=== PATIENT | female | born 1940 | race Caucasian/White ===

== ENCOUNTER → 2017-03-04 | Outpatient (CLI) | payer MEDICARE, OTHER ==
[~2017-03-04] MED LIST: ASA CHILDREN'S81 MG PO; BYSTOLIC10 MG PO; CALTRATE-600 W600 MG PO; CIPRO DPS500 MG PO; COZAAR DPS50 MG PO; ECOTRIN81 MG PO; HCTZ12.5 MG PO; LEXAPRO DPS10 MG PO; MAG-OX400 MG PO; NAMENDA XR28 MG PO; NORVASC5 MG PO; PROBIOTIC1 EAC1 PO; THERA1 EACH PO; TYLENOL DPS325 MG PO; ULTRAM DPS50 MG PO
== END | disposition home or self-care (01) ==
LOC: RAD.S 14:13
DX: Z12.31 Encounter for screening mammogram for malignant neoplasm of breast (principal); N95.9 Unspecified menopausal and perimenopausal disorder; M85.89 Other specified disorders of bone density and structure, multiple sites